=== PATIENT | male | born 1950 | race Caucasian/White ===

== ENCOUNTER 2019-10-01 15:31 | Outpatient (CLI) | payer OTHER, SELFPAY ==
--- NOTE | ~2019-10-01 | MR_ITS ---
EXAMINATION: MR lumbar spine wo [facility] EXAM DATE: 10/01/2019 16:30 INDICATION: Spinal stenosis, neurogenic claudication. Pain in back and down legs. TECHNIQUE: Multi-sequential, multiplanar MR images of the lumbar spine were obtained without contrast . Sagittal T1, T2, T2 fat saturation images. Axial T2 weighted images. Comparison is made to prior examination from 03/16/2015. FINDINGS: Again there is severe thoracolumbar levoscoliosis, compensatory lower lumbar dextroscoliosi s. There is moderate anterior wedging of the L3 vertebral body. Mild loss of other lumbar vertebral b laly heights. There are some lateral subluxations from the scoliosis. Moderate to severe disc disease from L1 through L5. There is 4 mm anterolisthesis L2 on L3, 3 mm retrolisthesis L3 on L4 and L4 on L5 . The conus medullaris terminates at the T12 level and has normal signal intensity and morphology. P araspinal soft tissue is unremarkable. Level by level evaluation: T12-L1: There is a mild to moderate diffuse disc bulge asymmetric to the right. Facet arthropathy: Mild to moderate. Neural foraminal stenosis: Moderate right. Central canal stenosis: Mild. L1-L2: There is a mild to moderate diffuse disc bulge asymmetric to the right. Facet arthropathy: Moderate right, mild left. Neural foraminal stenosis: Moderate right, mild left. Central canal stenosis: Mild to moderate, particularly right lateral recess. Nerve roots are in the r ight lateral recess due to scoliosis. L2-L3: There is a moderate to large diffuse disc bulge. Facet arthropathy: Severe. Neural foraminal stenosis: Moderate right, mild to moderate left. Central canal stenosis: Moderate. L3-L4: There is a moderate to large diffuse disc bulge asymmetric to the left. Facet arthropathy: Moderate. Neural foraminal stenosis: Mild to moderate left, mild right. Central canal stenosis: Mild to moderate, particularly left lateral recess which contains the nerve r oots. L4-L5: There is a mild to moderate diffuse disc bulge. Facet arthropathy: Moderate to severe. Neural foraminal stenosis: Moderate left, mild to moderate right. Central canal stenosis: Mild. L5-S1: There is a moderate diffuse disc bulge. Facet arthropathy: Moderate. Neural foraminal stenosis: Moderate left, mild right. Central canal stenosis: Mild. Compared to prior examination, mild interval progression in the advanced multilevel disc disease. IMPRESSION: 1. Severe thoracolumbar scoliosis. 2. Advanced spondylosis. Reviewed, dictated and finalized at location B.
== END 2019-10-01 15:32 | disposition home or self-care (01) ==
PROVIDERS: PCP Family Medicine
DX: M48.062 Spinal stenosis, lumbar region with neurogenic claudication (principal); M47.896 Other spondylosis, lumbar region
CPT/HCPCS: 72148

== ENCOUNTER 2019-10-15 11:11 | Outpatient (CLI) | payer OTHER, SELFPAY ==
--- NOTE | ~2019-10-15 | XR_ITS ---
XR_RIBSBI_CR DATE: 10/15/2019 11:42 INDICATION: Rib pain TECHNIQUE: Multiple views of bilateral ribs COMPARISON: None FINDINGS: There is old healed fracture deformity of the mid left clavicle particular shaft. There is diffuse osteopenia. No left or right rib fracture or bone destruction is detected. There is mild dextro scoliosis of the thoracic spine and prominent rotatory levoscoliosis of the lumb ar spine. Multilevel severe degenerative disc disease of the lumbar spine. IMPRESSION: Osteopenia Thoracic dextroscoliosis and prominent rotatory lumbar levoscoliosis Reviewed, dictated and finalized at Location A. Reviewed, dictated and finalized at location B.
== END 2019-10-15 11:12 | disposition home or self-care (01) ==
PROVIDERS: PCP Family Medicine
DX: M48.062 Spinal stenosis, lumbar region with neurogenic claudication (principal); M85.88 Other specified disorders of bone density and structure, other site; M41.84 Other forms of scoliosis, thoracic region; M41.86 Other forms of scoliosis, lumbar region
CPT/HCPCS: 71110

== ENCOUNTER 2020-11-18 11:58 | Outpatient (CLI) | payer OTHER, SELFPAY ==
--- NOTE | ~2020-11-18 | MR_ITS ---
EXAMINATION: MR thoracic spine wo con DATE: 11/18/2020 13:28 INDICATION: Thoracic spondylosis with radiculopathy. TECHNIQUE: Magnetic resonance imaging (MRI) of the thoracic spine was performed without intravenous c ontrast. Sagittal localizer T1-weighted FSE of the cervical spine was obtained. Thoracic spine sequen constantine included sagittal T2-weighted FSE, sagittal T1-weighted FSE, sagittal T2-weighted FS FSE, and axi al T2-weighted FSE. COMPARISON: None FINDINGS: There is 16 degrees levoscoliosis of thoracolumbar spine. There is kyphosis of cervical spi ne. There is 3 mm anterolisthesis of T2 on T3. Vertebral body heights are normal. There is mildly dec reased disc height at T2-T3, T7-T8, and T10-T11. There is severely decreased disc height at T12-L1. T here is severe cervical spondylosis. There is severe facet joint osteoarthritis in upper and lower th oracic spine. There is multilevel mild neural foraminal stenosis bilaterally. On the right, there is moderate neural foraminal stenosis at T12-L1. On the left, there is moderate neural foraminal stenosi s at T8-T9 and T10-T11. At T1-T2, there is a left central protrusion with mild central canal stenosis . At T3-T4, there is a central protrusion with mild central canal stenosis. The spinal cord signal in tensity is normal. IMPRESSION: 1. Moderate thoracic spondylosis. 2. Thoracolumbar levoscoliosis. Reviewed, dictated and finalized at location A.
== END 2020-11-18 11:59 | disposition home or self-care (01) ==
LOC: ANHIMG 11:59
PROVIDERS: PCP Family Medicine; Visit Provider Anesthesiology
DX: M47.815 Spondylosis without myelopathy or radiculopathy, thoracolumbar region (principal); M48.05 Spinal stenosis, thoracolumbar region; M41.9 Scoliosis, unspecified
CPT/HCPCS: 72146

== ENCOUNTER 2020-11-21 02:05 | Day surgery (SDC) | payer OTHER, SELFPAY ==
[2020-11-10 13:13] VITALS: BMI 23.9
[2020-11-21 09:27] VITALS: BP 134/81; PULSE 55; RESP 18; TEMP 35.8; O2SAT 98; BMI 22.8
[2020-11-21] MEDS: LACTATED RINGERS 1,000 ML 150 ML IV CONT (09:36)
--- NOTE | 2020-11-21 10:12 | WPDANESEPPF ---
Anes - Initial Pre Proc Eval Procedure: Operation Date: 11/21/20 10:45 Proposed Procedures p Esophagogastroduodenoscopy - Estrada Mcdonough MD Date/Time: 11/21/20 10:12 Surgeon: Estrada Mcdonough MD Pre Op Diagnosis: dysphagia, GERD Patient Data Age: 70 Gender: M Height: 1.83 m Weight: 76.3 kg Last Vital Signs Temp 35.8 C L 11/21/20 09:27 Pulse 55 L 11/21/20 09:27 Resp 18 11/21/20 09:27 BP 134/81 11/21/20 09:27 Pulse Ox 98 11/21/20 09:27 Allergies Allergy/AdvReac Type Severity Reaction Status Date / Time propoxyphene Allergy Mild HIVES Verified 11/21/20 09:26 aspirin Allergy Unknown hives Verified 11/21/20 09:26 Home Medications Medication Instructions Recorded Confirmed Type omeprazole 40 mg capsule,delayed 40 mg PO DAILY #90 cap 04/12/20 11/10/20 Rx release lisinopril 10 mg tablet 10 mg PO DAILY #90 tablet 07/21/20 11/10/20 Rx alprazolam 0.5 mg tablet 0.5 mg PO BID #60 tablet 08/19/20 11/10/20 Rx tramadol 50 mg tablet 50 mg PO Q6H PRN #60 tablet 11/07/20 11/10/20 Rx Patient hx anesthesia problems: none Family hx anesthesia problems: none PMFSH Family History Family History Father Hypertension Family history of malignant neoplasm of urinary bladder Social History Social History Smoking status: Never smoker Second hand tobacco smoke exposure: No Alcohol intake: never Alcohol use details: Quit 2-3 years ago Substance use: never Substance use type: does not use Living arrangements: with family Gender identity (if verbalized by the patient): Male Spiritual care concerns: No Anes - Eval Final PreProcedure Day of Procedure 11/21/20 10:12 Patient weight: normal Heart: regular rate and rhythm Lungs: clear to auscultation Airway: Mallampati scale class II Neurological: alert and oriented Last oral intake: >/= 8 hours ASA classification: III Emergent: no Anesthetic plan: proceed Anesthesia type and monitoring: general GIVS and standard monitoring Informed Consent: The patient's anesthetic plan and its attendant risks and benefits were discussed with the patient/family/POA. Questions were solicited and answers provided to the satisfaction of the patient/family/POA.
--- NOTE | 2020-11-21 10:25 | PM.HPGS ---
History of Present Illness History of Present Illness Consent: Risks, benefits, and alternatives have been discussed and questions answered. Patient agrees to proceed with procedure. Chief complaint: dysphagia, GERD Narrative: Олег Domínguez is a 70 year old male with gerd on omeprazole but lately also with dysphagia, never had egd Review of Systems Constitutional: Constitutional: Denies headache(s) and Denies weakness Eyes: Eyes: Denies blurry vision ENT: Reports Normal hearing present, Denies headache(s) and Denies neck pain Cardiovascular: Cardiovascular: Denies chest pain and Denies dyspnea Respiratory: Respiratory: Denies dyspnea Gastrointestinal: Gastrointestinal: Reports no additional gastrointestinal complaints Genitourinary: Genitourinary: Denies dysuria Musculoskeletal: Musculoskeletal: Denies neck pain Integumentary/Breasts: Skin/Breast: Denies dry skin Neurologic: Reports Normal hearing present, Denies headache(s) and Denies weakness Psychiatric: Psychiatric: Denies anxiety Endocrine: Endocrine: Denies change in body appearance Hematologic/Lymphatic: Hematologic/Lymphatic: Denies easy bleeding Allergic/Immunologic: Allergic/Immunologic: Denies urticaria PMF Past Medical History Medical History (Updated 11/21/20 @ 10:26 by Estrada Mcdonough MD) Dysphagia Family History Family History Father Hypertension Family history of malignant neoplasm of urinary bladder Social History Social History Smoking status: Never smoker Second hand tobacco smoke exposure: No Alcohol intake: never Alcohol use details: Quit 2-3 years ago Substance use: never Substance use type: does not use Living arrangements: with family Gender identity (if verbalized by the patient): Male Spiritual care concerns: No Meds Home Medications and Allergies Home Medications Medication Instructions Recorded Confirmed Type omeprazole 40 mg capsule,delayed 40 mg PO DAILY #90 cap 04/12/20 11/10/20 Rx release lisinopril 10 mg tablet 10 mg PO DAILY #90 tablet 07/21/20 11/10/20 Rx alprazolam 0.5 mg tablet 0.5 mg PO BID #60 tablet 08/19/20 11/10/20 Rx tramadol 50 mg tablet 50 mg PO Q6H PRN #60 tablet 11/07/20 11/10/20 Rx Allergies Allergy/AdvReac Type Severity Reaction Status Date / Time propoxyphene Allergy Mild HIVES Verified 11/21/20 09:26 aspirin Allergy Unknown hives Verified 11/21/20 09:26 Vital Signs Vital Signs - 24 hr 11/21/20 09:27 Temperature 96.5 F L Pulse Rate 55 L Respiratory Rate 18 Blood Pressure 134/81 Pulse Oximetry 98 Exam Const: General: comfortable and no acute distress HENMT: General nose exam: Normal nares present Eyes: General: appearance normal, both eyes and all related structures Neck: Neck: no JVD Resp: Auscultation: clear to auscultation bilaterally Cardio: Rate: regular rate Rhythm: regular rhythm GI: Inspection: non-distended GI Palp: Yes Soft to palpation Skin: General skin exam: normal color Neuro: General: gait normal Speech: normal speech Extrem: General: normal to inspection Psych: Mental Status: mental status grossly normal Assessment and Plan Assessment and plan (1) Gastro-esophageal reflux disease without esophagitis: Code(s): K21.9 - Gastro-esophageal reflux disease without esophagitis Status: Acute Assessment and Plan: already on omeprazole (2) Dysphagia: Code(s): R13.10 - Dysphagia, unspecified Status: Acute Assessment and Plan: egd to assess
[2020-11-21 10:46] VITALS: BP 125/81; PULSE 60; RESP 21; O2SAT 98
[2020-11-21 10:56] VITALS: BP 110/72; PULSE 52; RESP 12; O2SAT 100
== END 2020-11-21 11:20 | disposition home or self-care (01) ==
PROVIDERS: PCP Family Medicine; Visit Provider Internal Medicine Gastroenterology
PROC: 0DJ08ZZ Inspection of Upper Intestinal Tract, Via Natural or Artificial Opening Endoscopic (ICD-10-PCS; CPT 43235; principal; 2020-11-21 10:45)
DX: R13.10 Dysphagia, unspecified (principal); K21.9 Gastro-esophageal reflux disease without esophagitis; K29.50 Unspecified chronic gastritis without bleeding; K44.9 Diaphragmatic hernia without obstruction or gangrene; Z87.891 Personal history of nicotine dependence
CPT/HCPCS: 43239; 88305; J2001; J2704; J7120

== ENCOUNTER 2021-04-04 12:38 | Outpatient (CLI) | payer OTHER, SELFPAY ==
--- NOTE | ~2021-04-04 | US_ITS ---
EXAMINATION: US carotid duplex BI DATE: 04/04/2021 13:57 INDICATION: Subjective visual disturbance. Vertigo. TECHNIQUE: Grayscale, color Doppler, and pulsed Doppler images of the cervical carotid arteries were obtained. The degree of vessel stenosis is placed in one of the following categories: normal, <50%, 5 0-69%, >=70% but less than near-occlusion, near-occlusion, or total occlusion. Note that percent sten osis relative to normal distal artery lumen diameter is indirectly measured from velocity measurement s as described by Vineet, et al. Radiology 2003; 229:340-346. COMPARISON: None. FINDINGS: RIGHT: The right common carotid artery (CCA) peak systolic velocity (PSV) is 115 cm/s. The right internal ca rotid artery (ICA) PSV is 90 cm/s. The right ICA end-diastolic velocity (EDV) is 33 cm/s. The right I CA/CCA PSV ratio is 0.8. Grayscale and color Doppler images yield an estimate of <50% diameter reduct ion from plaque in the ICA. The external carotid artery (ECA) PSV is 85 cm/s. There is antegrade flow in the right vertebral artery. LEFT: The left CCA PSV is 134 cm/s. The left ICA PSV is 86 cm/s. The left ICA EDV is 32 cm/s. The left ICA/ CCA PSV ratio is 0.6. Grayscale and color Doppler images yield an estimate of <50% diameter reduction from plaque in the ICA. The ECA PSV is 85 cm/s. There is antegrade flow in the left vertebral artery . IMPRESSION: 1. <50% stenosis in the right internal carotid artery. 2. <50% stenosis in the left internal carotid artery. Reviewed, dictated and finalized at location A. NESS AND MARKETING TEACHER
--- NOTE | ~2021-04-04 | CT_ITS ---
EXAMINATION: CT brain wo con DATE: 04/04/2021 13:04 INDICATION: Unspecified visual disturbance. TECHNIQUE: Computed tomography (CT) of the head was performed without intravenous contrast. The mA wa s adjusted according to patient size. Iterative reconstruction technique was employed. The dose-lengt h product was 605.33 mGy-cm. COMPARISON: None FINDINGS: There is no intracranial hemorrhage, acute infarction, or abnormal intracranial mass lesion . The ventricles are normal in size. There are likely changes of ocular lens replacement surgeries. T here is mucosal thickening in the paranasal sinuses. The mastoid air cells are normal. IMPRESSION: 1. Normal brain. Reviewed, dictated and finalized at location B. AIGN ADVISOR IMPRESSION: 1. Normal brain.
== END 2021-04-04 12:39 | disposition home or self-care (01) ==
LOC: ANHIMG 12:46
PROVIDERS: PCP Family Medicine; Visit Provider Nurse Practitioner Family
DX: H53.9 Unspecified visual disturbance (principal); I10 Essential (primary) hypertension; R26.81 Unsteadiness on feet; I65.23 Occlusion and stenosis of bilateral carotid arteries
CPT/HCPCS: 70450; 93880

== ENCOUNTER 2022-12-02 08:09 | Outpatient (CLI) | payer OTHER, SELFPAY ==
--- NOTE | ~2022-12-02 | MR_ITS ---
MRI of the lumbar spine Clinical History: Spinal stenosis Technique: Axial T2-weighted images, and sagittal T1-weighted, T2-weighted, and T2 fat-sat images wer e acquired. Coronal T2 fat-sat images were also performed. COMPARISON: 10/01/2019 Findings: There is 42 degrees levoscoliosis in the lumbar spine. There is chronic loss of height of L 3 vertebral body, which is stable from prior exam. No acute fracture evident. No suspicious bone vesta ow signal abnormality seen. At L1-L2, there is right paracentral disc protrusion with mild to moderate facet arthropathy. There i s severe right neural foraminal narrowing. Left neural foramen preserved. No isma central canal sten osis. At L2-L3, there is diffuse disc bulge and severe facet arthropathy. There is minimal central canal st enosis. There is severe right neural foraminal narrowing. There is minimal left neural foraminal narr owing. At L3-L4, there is probable left foraminal disc bulge/protrusion, with moderate facet arthropathy. Th ere is severe left foraminal narrowing. There is minimal right neural foraminal narrowing. No isma c entral canal stenosis. At L4-L5, there is no disc bulge or herniation. There is moderate to advanced facet arthropathy bilat erally. There is severe bilateral neural foraminal narrowing. At L5-S1, there is minimal disc bulge with moderate facet arthropathy. No central canal stenosis. The re is moderate bilateral neural foraminal narrowing. Paravertebral soft tissues are unremarkable. Impression: 42 degrees levoscoliosis with stable chronic compression deformity of L3. Advanced degenerative spondylosis, with multilevel severe neural foraminal narrowing, as detailed abo ve. Reviewed, dictated and finalized at location M. Impression: 42 degrees levoscoliosis with stable chronic compression deformity of L3. Advanced degenerative spondylosis, with multilevel severe neural foraminal narr owing, as detailed above.
== END 2022-12-02 08:10 | disposition home or self-care (01) ==
PROVIDERS: PCP Family Medicine
DX: M48.062 Spinal stenosis, lumbar region with neurogenic claudication (principal); M47.896 Other spondylosis, lumbar region
CPT/HCPCS: 72148

== ENCOUNTER 2023-10-31 06:33 | Outpatient (CLI) | payer OTHER, SELFPAY ==
--- NOTE | ~2023-10-31 | MR_ITS ---
EXAMINATION: MR thoracic spine wo con DATE: 10/31/2023 07:08 INDICATION: Postlaminectomy syndrome TECHNIQUE: Magnetic resonance imaging (MRI) of the thoracic spine was performed without intravenous c ontrast. Sagittal localizer T1-weighted FSE of the cervicothoracic spine was obtained. Thoracic spine sequences included sagittal T2-weighted FSE, sagittal T1-weighted SE, Sagittal T2-weighted FS FSE, a nd axial T2-weighted FSE. COMPARISON: None FINDINGS: There is at least 35 degree levoscoliosis centered at the thoracolumbar junction and 15 degrees thora cic dextroscoliosis. Mild cervical kyphosis with severe lower cervical spondylosis on the localizer i mages. 2 mm anterolisthesis T2 on T3. Vertebral body heights are normal.T1 hyperintense likely benjamín ioma at the left side of T12. Low signal intensity likely bone island at T2. Marrow signal is otherwi se unremarkable. There is multilevel moderate to severe thoracic facet osteoarthritis most prominent at the upper thoracic spine jillian and a concave right side of the lower thoracic and upper lumbar spine . This contributes to multilevel mild to moderate neural foraminal stenosis greatest on the concave s ides of the thoracic and thoracolumbar scoliosis. Severe right-sided disc height loss at T12-L1 and L1-L2. Mild disc height loss at T2-T3, T7-T8 and T1 0-T11. Disc bulge with mild central canal stenosis at C7-T1. Small left subarticular zone disc extrus ion at T2-T3 with disc material extending couple millimeter cephalad to the level of the inferior end plate of T2 with mild central canal stenosis. Small right paracentral disc protrusion with minimal ce ntral canal stenosis at T3-T4. Mild left paracentral disc protrusion at T7-T8 with mild central canal stenosis. Disc bulge with superimposed annular fissure and right foraminal zone disc extrusion at valentino th T12-L1 and L1-L2 with mild central canal and moderate right neural foraminal stenosis at both leve ls. There is There is minimal central canal stenosis associated with multiple small disc protrusions at many of the intervening levels. There is also mild central canal stenosis without significant cont ribution from the discs at T10-T11 and T11-T12 resulting from hypertrophic facet osteoarthritis and l igamentum flavum hypertrophy. There is normal spinal cord signal. The conus terminates at T12-L1. IMPRESSION: 1. No significant change in 15 degrees mid thoracic dextro scoliosis and 35 degrees thoracolumbar lev oscoliosis with moderate thoracic and severe thoracolumbar spondylosis. Reviewed, dictated and finalized at location A. IMPRESSION: 1. No significant change in 15 degrees mid thoracic dextro scoliosis and 35 deg nisha thoracolumbar levoscoliosis with moderate thoracic and severe thoracolumba r spondylosis.
== END 2023-10-31 06:34 | disposition home or self-care (01) ==
PROVIDERS: PCP Family Medicine
DX: M41.84 Other forms of scoliosis, thoracic region (principal); M41.85 Other forms of scoliosis, thoracolumbar region; M43.04 Spondylolysis, thoracic region; M43.05 Spondylolysis, thoracolumbar region; M96.1 Postlaminectomy syndrome, not elsewhere classified
CPT/HCPCS: 72146

== ENCOUNTER 2024-09-11 11:18 | Outpatient (CLI) | payer OTHER, SELFPAY ==
--- NOTE | ~2024-09-11 | PE_ITS ---
EXAMINATION: PET_PETPSMAST_PT DATE: 09/11/2024 14:07 INDICATION: Prostate cancer TECHNIQUE: 4.868 mCi of Illucix Ga-[id number]) was administered i.v. Low dose computed zeinab graphy (CT) images were acquired from the base of the brain to the base of the brain to the proximal thighs for attenuation correction and anatomic localization. Positron emission tomography (PET) image s were acquired in the same distribution beginning 86 minutes after injection. Images including fused PET/CT images were reconstructed in axial, coronal, and sagittal planes. Automated exposure control technique was employed. The dose-length product was 1141.41mGy-cm. COMPARISON: None FINDINGS: Head/neck: Typical pattern of symmetric physiologic increased activity in the lacrimal and submandibular glands as well as along the mucosa of the nasal and oral cavities, pharynx and hypopharynx. There is physiol ogic uptake at the right parotid gland. Fatty atrophy of the left parotid gland with no evident uptak e. No pathologically enlarged cervical lymphadenopathy or suspicious foci of increased uptake in the visualized head or neck. Chest: Dependent atelectasis in both lungs. No suspicious pulmonary nodules or pleural effusion. Heart size is normal. No pericardial effusion. Thoracic aorta is normal in caliber. No pathologically enlarged o r PSMA avid thoracic lymphadenopathy. Abdomen/pelvis/proximal thighs: Physiologic renal accumulation and excretion of activity in the kidneys, bladder and along portions o f ureters. There is approximately 1.5 cm region of increased uptake at the inferior right posterolate ral peripheral zone of the enlarged prostate with maximal SUV of 12.5 consistent with primary prostat e cancer. Normal degree and slightly heterogenous pattern of increased uptake throughout the liver an d spleen without radiologic correlate or dominant PSMA avid lesion. Small hepatic calcification consi stent with old granulomatous disease. The gallbladder, pancreas and bilateral adrenal glands are norm al. Moderate uptake scattered throughout the bowels with typical duodenal and proximal jejunal predom inance and without radiologic correlate, also likely physiologic. No other abnormal foci of increased uptake or pathologically enlarged lymphadenopathy in the abdomen, pelvis or proximal thighs. Musculoskeletal: No suspicious lytic, blastic or abnormally PSMA avid bone lesions. IMPRESSION: 1. Small focus of increased uptake at the inferior right posterolateral aspect of the enlarged prosta te consistent with primary prostate cancer. No evident metastatic disease. Reviewed, dictated and finalized at location A. IMPRESSION: 1. Small focus of increased uptake at the inferior right posterolateral aspect of the enlarged prostate consistent with primary prostate cancer. No evident me tastatic disease.
--- OUTSIDE RECORDS SUMMARY | 2024-09-11 11:22 | XMS_ITS | Referral Summary ---
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 Care Teams Associate Professor Of Anthropology Relationship Specialty Start Date End Date Jonathan Lopez MD [address] [facility] [address] [place] [address] PCP - General Family Medicine 03/29/21
--- OUTSIDE RECORDS SUMMARY | 2024-09-11 11:22 | XMS_ITS | Clinical Summary ---
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 Gender Identity Not on file Sexual Orientation Not on file Plan of Treatment Health Maintenance Due Date Last Done Comments Colon Cancer Screening-Colonoscopy 1950 Depression Screening 1950 Fall Risk Assessment 1950 Hepatitis C Screening 1949 Hepatitis B Screening 1967 Abdominal Aortic Aneurysm (A AA) Screen 2014 Well Visit 65+ 2014 Covid-19 Vaccine (2023-2 5 season) 2023 01/19/2021, 07/07/2020, 06/16/2020 Influenza Vaccine (Season Ended) 2024 11/25/2020, 02/02/2020, 12/24/2018, Additional history exists DTaP/Tdap/Td Vaccine (3 - Td or Tdap) 11/08/2030 11/08/2020, 01/29/2019 Pneumococcal vaccine 65+ Completed 03/18/2018, 01/06 Zoster Vaccine Completed 06/09/2018, 03/18/2018 Insurance [facility] Care Teams Range Mounter Relationship Specialty Start Date End Date Jonathan Lopez MD [address] [place], [place] [id number] PCP - General Family Medicine 03/29/21
== END 2024-09-11 11:19 | disposition home or self-care (01) ==
PROVIDERS: PCP Family Medicine; Visit Provider Urology
DX: C61 Malignant neoplasm of prostate (principal)
CPT/HCPCS: 78815; A9596

== ENCOUNTER 2025-03-17 13:43 | Outpatient (CLI) | payer OTHER, SELFPAY ==
--- NOTE | ~2025-03-17 | CT_ITS ---
EXAMINATION: CT diagnostic chest wo con DATE: 03/17/2025 14:09 INDICATION: spiculated Lt lower lobe nodule CT abd/pelvis 11/20 TECHNIQUE: Computed tomography (CT) of the chest was performed without intravenous contrast. Additional 3D reconstructions utilizing coronal maximum intensity projection (MIP) were performed. Automated exposure control and iterative reconstruction technique were employed. The dose-length product was 18 0.35 mGy-cm. COMPARISON: PET/CT dated 09/11/2024 FINDINGS: There are few small bilateral calcified pulmonary nodules along with calcified bilateral hilar lymph nodes consistent with old granulomatous disease. There is peripheral and lower lung predominant irregular septal line thickening and mild groundglass opacities likely related to chronic interstitial lung disease. There is suggestion of some early associated honeycombing and would favor usual interstitial pneumonia (UIP) over nonspecific interstitial pneumonia (NSIP) pattern of disease. There are few scattered <3 mm noncalcified pulmonary nodules. No pneumonia, pulmonary edema or pleural effusion. Heart size normal. Aortic valve and mitral annular calcifications. No pericardial effusion. Thoracic aorta is normal in caliber. No pathologically enlarged thoracic lymphadenopathy. 35 degrees thoracolumbar levoscoliosis with severe spondylosis. Mild thoracic compensatory dextrocurvature with mild spondylosis. Thoracic spinal stimulator lead in the posterior central canal with distal tip at the level of T7. Sclerotic bone island at T2. IMPRESSION: 1. Chronic UIP versus less likely NSIP pattern chronic interstitial lung disease. 2. A few scattered <4 mm pulmonary nodules. If the patient is low risk for lung cancer, no follow-up is needed. If the patient is high risk (i.e., history of smoking or asbestos or significant radiation exposure), optional follow-up chest CT could be considered at 12 months. Reviewed, dictated and finalized at location A. [employer] [employer] IMPRESSION: 1. Chronic UIP versus less likely NSIP pattern chronic interstitial lung diseas e. 2. A few scattered <4 mm pulmonary nodules. If the patient is low risk for lung cancer, no follow-up is needed. If the patient is high risk (i.e., history of smoking or asbestos or significant radiation exposure), optional follow-up ches t CT could be considered at 12 months.
== END 2025-03-17 13:44 | disposition home or self-care (01) ==
PROVIDERS: PCP Family Medicine; Visit Provider Physician Assistant
DX: R91.8 Other nonspecific abnormal finding of lung field (principal); R93.89 Abnormal findings on diagnostic imaging of other specified body structures; J84.112 Idiopathic pulmonary fibrosis; Z77.090 Contact with and (suspected) exposure to asbestos; Z77.22 Contact with and (suspected) exposure to environmental tobacco smoke (acute) (chronic)
CPT/HCPCS: 71250